=== PATIENT | male | born 1955 | race Caucasian/White ===

== ENCOUNTER 2016-10-10 19:35 | Emergency (ER) | payer OTHER ==
[~2016-10-10] VITALS: Ht 170.2 cm; Wt 86.2 kg
--- NOTE | 2016-10-10 20:28 | ED GI/GU/ABDOMINAL COMPLAINT ---
History of Present Illness General Chief Complaint: Abdominal Pain/Flank Pain Stated Complaint: SEVERE ABD. PAIN, ALOT OFBLOOD IN VOMIT PER PT Source: patient Exam Limitations: no limitations Vital Signs & Intake/Output Vital Signs & Intake/Output Vital Signs Date Time Temp Pulse Resp B/P B/P Pulse O2 O2 Flow FiO2 Mean Ox Delivery Rate 10/10 2212 99.6 82 21 128/72 93 Room Air 10/10 1952 99.4 79 20 124/78 94 Room Air ED Intake and Output 10/11 0000 10/10 1200 Intake Total 1000 Output Total Balance 1000 Intake, IV 1000 Patient 190 lb Weight Weight Reported by Patient Measurement Method Allergies Coded Allergies: No Known Allergies (10/10/16) Reconcile Medications Pantoprazole Sodium (Protonix) 40 MG TABLET. 1 TAB PO DAILY stomach pain Triage Note: TRIAGE: PT TO ER C/C DIFFUSE ABD PAIN, ONSET 11:30, CONSTANT SINCE ONSET. DENIES NAUSEA BUT STATES "I HAD TO MAKE MYSELF THROW UP TO RELIEVE THE PAIN AND PRESSURE IN MY STOMACH. I DON'T KNOW IF I HAVE A BLOCKAGE OR WHAT. I HAD BLOOD COME UP TOO. OFF I GO TO THE HOSPITAL. I'M NOT FOOLING AROUND WITH THAT". TRIED PEPCID, TUMS, BAKING SODA AND WATER WITH NO RELIEF BUT "THE BAKING SODA AND WATER HELPED ME TO TOSS LUNCH". 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 STATES THE PAIN IS CONSTANT BUT IS WORSE IN WAVES. PAIN RADIATES TO THE BACK WITH THE WORSE WAVES OF PAIN. MOVEMENT MAKES THE PAIN WORSE. LNBM THIS MORNING. DENIES URINARY S/S. Triage Nurses Notes Reviewed? yes Onset: Gradual Duration: hour(s): Timing: single episode today Quality/Severity: cramping, sharpness Location: epigastric, generalized abdomen Radiation: no radiation Activities at Onset: none Prior Abdominal Problems: none Modifying Factors: Worsens With: palpation, vomiting. Associated Symptoms: abdominal pain HPI: 60 yo gentleman with nausea, mid epigastric abdominal pain, distension, started this afternoon. "I was vomiting and then some blood came out once." He denies ETOH, or suspicious food intake. He denies fever, chills, chest pain, dyspnea. He is otherwise well. Past History Travel History Traveled to [place] past 21 day No Medical History Any Pertinent Medical History? 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 No Review of Systems Review of Systems Constitutional: Reports: no symptoms. EENTM: Reports: no symptoms. Respiratory: Reports: no symptoms. Cardiovascular: Reports: no symptoms. GI: Reports: no symptoms. Genitourinary: Reports: no symptoms. Musculoskeletal: Reports: no symptoms. Skin: Reports: no symptoms. Neurological/Psychological: Reports: no symptoms. Hematologic/Endocrine: Reports: no symptoms. Immunologic/Allergic: Reports: no symptoms. All Other Systems: Reviewed and Negative Physical Exam Physical Exam General Appearance: well developed/nourished, mild distress, moderate distress Head: atraumatic, normal appearance Eyes: Bilateral: normal appearance. Ears, Nose, Throat, Mouth: hearing grossly normal Neck: normal inspection, supple, full range of motion Respiratory: normal breath sounds Cardiovascular: regular rate/rhythm Gastrointestinal: normal bowel sounds, soft, diffusely tender with mild rebound. worse in mid-epigastrum Back: normal inspection Extremities: normal range of motion Neurologic/Psych: no motor/sensory deficits, awake, alert, oriented x 3 Skin: intact, normal color, warm/dry Core Measures ACS in differential dx? No Severe Sepsis Present: No Septic Shock Present: No Progress Differential Diagnosis: sbo, diverticulitis, perforation vs other. Plan of Care: Orders Procedure Date/time Status LACTIC ACID 10/108 Active LIPASE 10/11 2039 Complete HEPATIC FUNCTION PANEL 10/11 2039 Complete BASIC METABOLIC PANEL 10/11 2039 Complete AMYLASE 10/11 2039 Complete LACTIC ACID 10/11 2027 Complete TROPONIN LEVEL 10/10 1953 Complete EKG 10/10 1953 Active PARTIAL THROMBOPLASTIN TIME 10/10 1952 Complete PROTHROMBIN TIME 10/10 1952 Complete CBC WITHOUT DIFFERENTIAL 10/10 1952 Complete Laboratory Tests 10/10/162039: Lactic Acid 1.6 10/10/162039: Anion Gap 11, Estimated GFR > 60, BUN/Creatinine Ratio 14.4, Glucose 134 H, Calcium 9.9, Total Bilirubin 1.3, Direct Bilirubin 0.7 H, AST 318 H, ALT 342 H, Alkaline Phosphatase 90, Troponin I < 0.01, Total Protein 6.7, Albumin 4.0, Amylase 243 H, Lipase 1460 H, PT 10.1, INR 0.96, APTT 34, CBC w Diff NO MAN DIFF REQ, RBC 5.75, MCV 93.6, MCH 31.7 H, RDW 13.9, MPV 7.7, Gran % 88.9 H, Lymphocytes % 7.1 L, Monocytes % 3.4, Eosinophils % 0.4, Basophils % 0.2, Absolute Granulocytes 14.6 H, Absolute Lymphocytes 1.2, Absolute Monocytes 0.6, Absolute Eosinophils 0.1, Absolute Basophils 0, PUBS MCHC 33.9 10/10/161952: Sodium Cancelled, Potassium Cancelled, Chloride Cancelled, Carbon Dioxide Cancelled, Anion Gap Cancelled, BUN Cancelled, Creatinine Cancelled, BUN/ Creatinine Ratio Cancelled, Glucose Cancelled, Calcium Cancelled, Total Bilirubin Cancelled, Direct Bilirubin Cancelled, AST Cancelled, ALT Cancelled, Alkaline Phosphatase Cancelled, Total Protein Cancelled, Albumin Cancelled, Amylase Cancelled, Lipase Cancelled Diagnostic Imaging: Viewed by Me: CT Scan. Discussed w/RAD: CT Scan. Radiology Impression: abd/pelvic ct... pancreatitis Initial ED EKG: normal axis, normal intervals, normal p-waves, normal QRS complex, normal sinus rhythm Comments: PATIENT: CHON BAUTISTA PRESENT AGE: 60 PATIENT ACCOUNT NO: [id number] : 56 LOCATION: [facility] ORDERING PHYSICIAN: ASHOK HINKLE MD SERVICE DATE: 10/10/16 EXAM TYPE: CAT - CT ABD & PELVIS W/O IV CONTRAS EXAMINATION: CT ABDOMEN AND PELVIS WITHOUT CONTRAST CLINICAL INFORMATION: Abdominal pain. COMPARISON: No relevant prior studies are available for comparison. TECHNIQUE: Multidetector volumetric imaging was performed from the superior aspect of the liver through the pubic symphysis. Sagittal and coronal reformatted images were obtained on the technologist's workstation. DLP: 777.30 mGy-cm. FINDINGS: LUNG BASES: Diffuse emphysematous changes are seen throughout the bilateral lung bases. There is focal airspace consolidation within the right lower lobe, adjacent to the right hemidiaphragm. This could represent atelectasis or infiltrates. An underlying pulmonary mass cannot be excluded. An additional 1 cm pulmonary nodule is seen within the posterior right lower lobe. A dedicated chest CT is recommended to help further evaluate. LIVER, GALLBLADDER, AND BILIARY TREE: The liver is normal in size, shape, and attenuation. No biliary ductal dilatation is present. There is a 1.4 cm hypoechoic structure within the left hepatic lobe which has a density of 15 Hounsfield units, and could represent a cyst. Multiple dependent gallstones are seen. There is no pericholecystic fat stranding or extrahepatic biliary ductal dilatation. PANCREAS: There is diffuse fat stranding adjacent to the pancreatic body and head, consistent with acute pancreatitis. Inflammatory change extends adjacent to the duodenum. There is a focus of air within the inflammation medial to the second portion of the duodenum, which is likely related to a duodenal diverticula. SPLEEN: Unremarkable. ADRENAL GLANDS: Unremarkable. KIDNEYS AND URETERS: The kidneys are normal in size, shape, and attenuation. No hydronephrosis, hydroureter, or calculi seen. No perinephric stranding. BLADDER: Unremarkable. GASTROINTESTINAL TRACT: There is no large or small bowel obstruction. There is inflammation adjacent to the duodenum and a probable duodenal diverticulum as discussed above. There are scattered colonic diverticula without adjacent inflammatory changes to suggest acute diverticulitis. The appendix is normal. There is no intra-abdominal free air. ABDOMINAL WALL: There are bilateral fat-containing inguinal hernias, left greater than right. A portion of the colon extends adjacent to the inlet to the left inguinal hernia without evidence of obstruction. LYMPH NODES: Normal. VASCULAR: There are scattered atherosclerotic calcifications within the abdominal aorta and its branch vessels. The IVC is unremarkable. PELVIC VISCERA: The prostate and seminal vesicles are unremarkable. OSSEOUS STRUCTURES: There are mild degenerative changes within the lower lumbar spine. There is no lytic or blastic osseous lesion. IMPRESSION: 1. Diffuse fat stranding adjacent to the pancreatic body and head, consistent with acute pancreatitis. No associated organized fluid collection or evidence of a pseudocyst. The inflammation extends around the adjacent duodenum, where there is a probable diverticulum medial to the second portion of the duodenum. 2. Cholelithiasis. No pericholecystic fat stranding to suggest acute cholecystitis. 3. No large or small bowel obstruction. Diverticulosis without evidence of acute diverticulitis. Normal appendix. 4. Emphysematous changes throughout the bilateral lower lobes. Focal airspace opacification within the right lower lobe which could represent atelectasis or infiltrates. An underlying pulmonary mass cannot be excluded. Additional pulmonary nodule posteriorly within the right lower lobe. A nonemergent dedicated chest CT is recommended to help further evaluate. DICTATED BY: JEFF BRAVO MD DATE/TIME DICTATED:10/10/162118 SUPERVISOR NET MAKING:AMY DATE/TIME TRANSCRIBED:10/10/162118 CONFIDENTIAL, DO NOT COPY WITHOUT APPROPRIATE AUTHORIZATION. <Electronically signed in Other Vendor System> SIGNED BY: JEFF BRAVO MD 2140 Departure Departure Disposition: STILL A PATIENT Condition: Stable Clinical Impression Primary Impression: Pancreatitis Secondary Impressions: Left against medical advice Referrals: KAYLI FAUSTIN MD (PCP/Family) Departure Forms: Customer Survey General Discharge Information Prescriptions: Current Visit Scripts Pantoprazole Sodium (Protonix) 1 TAB PO DAILY #30 TAB Comments 10/10/16, 22:24... discussed with GI... no need for transfer for ercp, but would cover for biliary track infection. 10/10/16, 22:43... discussed at length... pt wishes to leave against medical advice. I counseled him about the serious nature of his illness, that may result in serious consequences, even . 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
[2016-10-10 20:51] LABS: ABSOLUTE BASOPHIL COUNT 0 /CUMM (0.0-0.2); ABSOLUTE EOSINOPHIL COUNT 0.1 /CUMM (0.0-0.7); ABSOLUTE GRANULOCYTE CT 14.6 /CUMM (1.4-6.5); ABSOLUTE LYMPH COUNT 1.2 /CUMM (1.2-3.4); ABSOLUTE MONOCYTE COUNT 0.6 /CUMM (0.10-0.60); BASOPHIL % 0.2 % (0.0-2.0); EOSINOPHIL % 0.4 % (0-5); GRANULOCYTE % 88.9 % (42.2-75.2); HEMATOCRIT 53.9 % (42-52); MEAN CORPUSCULAR HGB 31.7 PG (27.0-31.0); MEAN CORPUSCULAR HGB CONC 33.9 G/DL (33.0-37.0); MEAN CORPUSCULAR VOLUME 93.6 FL (80.0-94.0); MEAN PLATELET VOLUME 7.7 FL (7.4-10.4); PLATELET COUNT 216 /CUMM (130-400); RBC DISTRIBUTION WIDTH 13.9 % (11.5-14.5); RED BLOOD CELL CT 5.75 /CUMM (4.70-6.10)
[2016-10-10 21:01] LABS: PT 10.1 SEC (9.4-12.5); PTT 34 SEC (25-37)
[2016-10-10 21:29] LABS: WHITE BLOOD CELL COUNT 16.4 /CUMM (4.8-10.8)
--- NOTE | 2016-10-10 21:41 | CT SCAN REPORT ---
EXAMINATION: CT ABDOMEN AND PELVIS WITHOUT CONTRAST CLINICAL INFORMATION: Abdominal pain. COMPARISON: No relevant prior studies are available for comparison. TECHNIQUE: Multidetector volumetric imaging was performed from the superior aspect of the liver through the pubic symphysis. Sagittal and coronal reformatted images were obtained on the technologist's workstation. DLP: 777.30 mGy-cm. FINDINGS: LUNG BASES: Diffuse emphysematous changes are seen throughout the bilateral lung bases. There is focal airspace consolidation within the right lower lobe, adjacent to the right hemidiaphragm. This could represent atelectasis or infiltrates. An underlying pulmonary mass cannot be excluded. An additional 1 cm pulmonary nodule is seen within the posterior right lower lobe. A dedicated chest CT is recommended to help further evaluate. LIVER, GALLBLADDER, AND BILIARY TREE: The liver is normal in size, shape, and attenuation. No biliary ductal dilatation is present. There is a 1.4 cm hypoechoic structure within the left hepatic lobe which has a density of 15 Hounsfield units, and could represent a cyst. Multiple dependent gallstones are seen. There is no pericholecystic fat stranding or extrahepatic biliary ductal dilatation. PANCREAS: There is diffuse fat stranding adjacent to the pancreatic body and head, consistent with acute pancreatitis. Inflammatory change extends adjacent to the duodenum. There is a focus of air within the inflammation medial to the second portion of the duodenum, which is likely related to a duodenal diverticula. SPLEEN: Unremarkable. ADRENAL GLANDS: Unremarkable. KIDNEYS AND URETERS: The kidneys are normal in size, shape, and attenuation. No hydronephrosis, hydroureter, or calculi seen. No perinephric stranding. BLADDER: Unremarkable. GASTROINTESTINAL TRACT: There is no large or small bowel obstruction. There is inflammation adjacent to the duodenum and a probable duodenal diverticulum as discussed above. There are scattered colonic diverticula without adjacent inflammatory changes to suggest acute diverticulitis. The appendix is normal. There is no intra-abdominal free air. ABDOMINAL WALL: There are bilateral fat-containing inguinal hernias, left greater than right. A portion of the colon extends adjacent to the inlet to the left inguinal hernia without evidence of obstruction. LYMPH NODES: Normal. VASCULAR: There are scattered atherosclerotic calcifications within the abdominal aorta and its branch vessels. The IVC is unremarkable. PELVIC VISCERA: The prostate and seminal vesicles are unremarkable. OSSEOUS STRUCTURES: There are mild degenerative changes within the lower lumbar spine. There is no lytic or blastic osseous lesion. IMPRESSION: 1. Diffuse fat stranding adjacent to the pancreatic body and head, consistent with acute pancreatitis. No associated organized fluid collection or evidence of a pseudocyst. The inflammation extends around the adjacent duodenum, where there is a probable diverticulum medial to the second portion of the duodenum. 2. Cholelithiasis. No pericholecystic fat stranding to suggest acute cholecystitis. 3. No large or small bowel obstruction. Diverticulosis without evidence of acute diverticulitis. Normal appendix. 4. Emphysematous changes throughout the bilateral lower lobes. Focal airspace opacification within the right lower lobe which could represent atelectasis or infiltrates. An underlying pulmonary mass cannot be excluded. Additional pulmonary nodule posteriorly within the right lower lobe. A nonemergent dedicated chest CT is recommended to help further evaluate.
[2016-10-10 22:13] VITALS: BP 128/72
[2016-10-10] MEDS ORDERED: PROTONIX40 M3 PO (22:43)
== END 2016-10-10 22:54 | disposition left against medical advice (07) ==
LOC: ERH 19:35
PROVIDERS: Pediatrics
DX: K85.90 Acute pancreatitis without necrosis or infection, unspecified (principal)
CPT/HCPCS: 74176; 93005; 93010; 96361; 96374; 96375

== ENCOUNTER 2016-10-27 10:40 | Emergency (ER) | payer OTHER ==
[~2016-10-27] VITALS: Ht 170.2 cm; Wt 86.2 kg
[~2016-10-27 10:40] MED LIST: PROTONIX40 M3 PO
[2016-10-27 10:47] VITALS: BP 126/85
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
[2016-10-27] MEDS ORDERED: HYDROCODON-ACE1 EAC3 PO (11:11)
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
[2016-10-27] MEDS ORDERED: CYCLOBENZAPRINE5 M2 PO (12:30)
== END 2016-10-27 12:34 ==
LOC: ERH 10:40
DX: S16.1XXA Strain of muscle, fascia and tendon at neck level, initial encounter (principal); V89.0XXA Person injured in unspecified motor-vehicle accident, nontraffic, initial encounter; Y92.481 Parking lot as the place of occurrence of the external cause